=== PATIENT | female | born 1985 | race Hispanic/Latino ===

== ENCOUNTER 2017-09-07 16:32 | Observation (INO) | payer MEDICAID ==
[2017-09-07] MEDS ORDERED: Iohexol 240 (50 ml) PO ONE (17:07)
[2017-09-07 17:54] LABS: BASO # 0.2 K/uL (0.0-0.2); BASO % 0.7 % (0.0-2.0); EOS % 0.2 % (0.0-4.0); HEMOGLOBIN 10.2 g/dL (12.0-16.0); LYMPH # 3.4 K/uL (1.0-4.3); LYMPH % 14.6 % (20.0-40.0); MEAN CELL VOLUME 79.6 fl (81.0-99.0); MEAN CORPUSCULAR HEMOGLOBIN 24.7 pg (27.0-31.0); MEAN CORPUSCULAR HGB CONC 31.1 g/dL (33.0-37.0); MEAN PLATELET VOLUME 7.4 fl (7.2-11.7); MONO # 0.4 K/uL (0.0-0.8); MONO % 1.9 % (0.0-10.0); NEUT # 19.3 K/uL (1.8-7.0); NEUT % 82.6 % (50.0-75.0); RBC 4.13 Mil/uL (3.80-5.20); RED CELL DISTRIBUTION WIDTH 14.3 % (11.5-14.5)
[2017-09-07 17:59] LABS: ALB/GLOB RATIO 1.2 (1.0-2.1); ALBUMIN 3.6 g/dL (3.5-5.0); ALT/SGPT 30 U/L (9-52); AST/SGOT 28 U/L (14-36); BLOOD UREA NITROGEN 14 mg/dl (7-17); CALCIUM 7.9 mg/dL (8.4-10.2); GFR AFRICAN-AMERICAN > 60; GFR NON-AFRICAN AMERICAN > 60; LIPASE 46 U/L (23-300)
[2017-09-07 18:02] LABS: PARTIAL THROMBOPLASTIN TIME 23.5 Seconds (25.6-37.1); PROTHROMBIN TIME 11.3 Seconds (9.8-13.1)
[2017-09-07] MEDS ORDERED: metroNIDAZOLE 500mg/100ml NS 100 ML IV STA (18:34)
[2017-09-07] MEDS ORDERED: Ciprofloxacin 400mg/200ml D5W 400 MG/200 ML BAG IV STA (18:34)
[2017-09-07] MEDS ORDERED: metroNIDAZOLE 500mg/100ml NS 100 ML IVPB ONE (18:54)
[2017-09-07] MEDS ORDERED: Ciprofloxacin 400mg/200ml D5W 400 MG/200 ML BAG IVPB ONE (18:54)
[2017-09-07] MEDS ORDERED: Iohexol 240 (50 ml) ONE (18:55)
[2017-09-07 19:05] LABS: WHITE BLOOD COUNT 23.4 K/uL (4.8-10.8)
--- NOTE | 2017-09-07 19:22 | ED PDOC ---
HPI: Abdomen Time Seen by Provider: 09/07/17 16:54 Chief Complaint (Nursing): Abdominal Pain Chief Complaint (Provider): abdominal pain History Per: Patient History/Exam Limitations: no limitations Onset/Duration Of Symptoms: Days (month), Gradual Current Symptoms Are (Timing): Still Present Location Of Pain/Discomfort: RLQ, LLQ Associated Symptoms: Nausea. denies: Fever, Chills, Vomiting, Urinary Symptoms Additional Complaint(s): Jocelyn Figueroa is a 31 year old female, with a past history of chronic urticaria, who presents to the emergency department complaining of abdominal pain ongoing for a month and increasing in intensity. Patient states pain is localized around umbilicus but radiates to b/l lower quadrants associated with nausea, decrease appetite, and frequent wes-like stools. She reports similar pain when she was diagnosed with colitis several years ago. She denies any vomiting, decreased appetite, fever, chills, vaginal or urinary complaints. No further medical complaints. Of note patient has been on prednisone intermittently for the last month secondary to rash. PMD: [place]. Abnormal Vaginal Bleeding: No Past Medical History Reviewed: Historical Data, Nursing Documentation, Vital Signs Vital Signs: Last Vital Signs Temp 100.2 F H 09/07/17 22:09 Pulse 120 H 09/07/17 20:52 Resp 18 09/07/17 20:52 BP 90/54 L 09/07/17 20:52 Pulse Ox 100 09/07/17 20:52 - Medical History PMH: Asthma Denies: Diabetes, HTN Other PMH: chronic urticaria - Surgical History Surgical History: (x3) - Family History Family History: States: Unknown Family Hx - Social History Current smoker - smoking cessation education provided: No Alcohol: None Drugs: Denies - Immunization History Hx Tetanus Toxoid Vaccination: No Hx Influenza Vaccination: No Hx Pneumococcal Vaccination: No - Home Medications Home Medications: Ambulatory Orders Medication Instructions Recorded Azithromycin [Zithromax Z-Sheldon] 250 mg PO DAILY #1 tab 09/18/14 Prednisone 3 tab-cap PO QAM #12 tab 09/18/14 traMADol [Ultram] 50 mg PO TID PRN #16 tab 09/18/14 traMADol [Ultram] 50 mg PO TID PRN #15 tab 05/08/15 - Allergies Allergies/Adverse Reactions: Allergies Allergy/AdvReac Type Severity Reaction Status Date / Time PORK Allergy ANAPHYLAXIS Verified 09/07/17 16:38 Review of Systems ROS Statement: Except As Marked, All Systems Reviewed And Found Negative Constitutional: Negative for: Fever, Chills Gastrointestinal: Positive for: Nausea, Abdominal Pain. Negative for: Vomiting , Diarrhea Genitourinary Female: Negative for: Vaginal Discharge, Vaginal Bleeding Skin: Positive for: Rash (chronic urticaria) Physical Exam - Reviewed Nursing Documentation Reviewed: Yes Vital Signs Reviewed: Yes - Physical Exam Appears: Positive for: In Acute Distress (painful) Head Exam: Positive for: ATRAUMATIC, NORMAL INSPECTION, NORMOCEPHALIC Skin: Positive for: Normal Color, Warm, Dry, Rash (diffused urticaria) Eye Exam: Positive for: Normal appearance, EOMI, PERRL ENT: Positive for: Other (tacky mucous membranes) Neck: Positive for: Painless ROM, Supple Cardiovascular/Chest: Positive for: Regular Rate, Rhythm. Negative for: Murmur Respiratory: Positive for: Normal Breath Sounds. Negative for: Respiratory Distress Gastrointestinal/Abdominal: Positive for: Soft, Tenderness (periumbilical and b/ l lower quadrants tenderness to palpation ). Negative for: Guarding, Rebound Back: Positive for: Normal Inspection Extremity: Positive for: Normal ROM (upper and lower extremities) Neurologic/Psych: Positive for: Alert, Oriented - Laboratory Results Result Diagrams: 09/07/17 17:45 09/07/17 17:45 - ECG O2 Sat by Pulse Oximetry: 100 (RA) Pulse Ox Interpretation: Normal Medical Decision Making Medical Decision Making: Time: 16:54 Initial Impression: abdominal pain. Differential includes but not limited to colitis, diverticulitis, appendicitis, enteritis. Initial Plan: --Abd Pelvis PO & IV contrast [CT] --CMP --Lact Acid, Plasma --Lipase --Urine dipstick --Urine --CBC w/ differential --PTT --PT --Cipro 400mg in 200 ml IV --Flagyl 100 ml IV --Omnipaque 240 50 ml PO --Morphine 4 mg IVP --Zofran Inj 4 mg IVP --Blood culture --Reevaluation 22:[address] FINDINGS: Lung bases: Subpleural reticular opacities within the dependent aspect of the lower lobes may represent subsegmental atelectasis or scarring. Mediastinum: A small amount of contrast is present within the distal esophagus. ABDOMEN: Liver: Mild focal fatty infiltration in the region of the falciform ligament. The liver is otherwise unremarkable. Gallbladder and bile ducts: Normal. No calcified stones. No ductal dilation. Pancreas: The pancreas is normal. No ductal dilation. Spleen: Normal. No splenomegaly. Adrenals: The adrenal glands are normal. Kidneys and ureters: The kidneys are normal. The ureters are normal. No hydronephrosis. Stomach and bowel: Contrast is present within the stomach, small bowel, and proximal large bowel. No bowel dilation. No bowel wall thickening. PELVIS: Appendix: A normal appendix is identified. Bladder: The bladder is normal. Reproductive: The uterus is normal. Normal appearance of the adnexa. ABDOMEN and PELVIS: Intraperitoneal space: Normal. No free air. No significant fluid collection. Bones/joints: Normal for age. No acute osseous abnormality. Soft tissues: Normal. Vasculature: Normal. No abdominal aortic aneurysm. Lymph nodes: Normal. No enlarged lymph nodes. IMPRESSION: No acute abdominopelvic abnormality. 10:47 On reevaluation patient still has pain. Pt was hospitalized for sepsis, and intractable & undifferentiated abdominal pain ----- Scribe Attestation: Documented by Aleksandar Gracia, acting as a scribe for Tameka Plaza MD. Provider Scribe Attestation: All medical record entries made by the Scribe were at my direction and personally dictated by me. I have reviewed the chart and agree that the record accurately reflects my personal performance of the history, physical exam, medical decision making, and the department course for this patient. I have also personally directed, reviewed, and agree with the discharge instructions and disposition. Disposition - Disposition Disposition Time: 10:47 Condition: FAIR Forms: [employer] ([place])
[2017-09-07] MEDS ORDERED: DiphenhydrAMINE 50 mg/ml Inj IVP STA (20:49)
[2017-09-07] MEDS ORDERED: Sodium Chloride 0.9% 100 ML ONE (21:41)
[2017-09-07] MEDS ORDERED: Iohexol 300 100 ML IJ ONE (21:41)
[2017-09-07] MEDS ORDERED: Morphine 4 MG/ML VIAL ONE (23:14)
[2017-09-07] MEDS: Sodium Chloride 0.9% 1,000 ML IV SCH (23:22)
[2017-09-08] MEDS: metroNIDAZOLE 500mg/100ml NS 100 ML IVPB SCH ×3 (01:24→16:34)
[2017-09-08 07:12] LABS: BASO % 0.2 % (0.0-2.0); HEMOGLOBIN 9.4 g/dL (12.0-16.0); LYMPH % 9.2 % (20.0-40.0); MEAN CELL VOLUME 79.7 fl (81.0-99.0); MEAN CORPUSCULAR HEMOGLOBIN 25.4 pg (27.0-31.0); MEAN CORPUSCULAR HGB CONC 31.8 g/dL (33.0-37.0); MEAN PLATELET VOLUME 7.7 fl (7.2-11.7); MONO % 0.4 % (0.0-10.0); NEUT % 90.2 % (50.0-75.0); PLATELET COUNT 352 K/uL (130-400); RBC 3.71 Mil/uL (3.80-5.20); WHITE BLOOD COUNT 11.1 K/uL (4.8-10.8)
[2017-09-08 07:34] LABS: ALB/GLOB RATIO 1.3 (1.0-2.1); ALBUMIN 3.8 g/dL (3.5-5.0); ALT/SGPT 28 U/L (9-52); AST/SGOT 21 U/L (14-36); BLOOD UREA NITROGEN 9 mg/dl (7-17); CALCIUM 8.3 mg/dL (8.4-10.2); GFR AFRICAN-AMERICAN > 60; GFR NON-AFRICAN AMERICAN > 60
[2017-09-08 08:44] VITALS: RESP 18; O2SAT 100
--- NOTE | 2017-09-08 08:48 | CP.PCM.HP ---
History of Present Illness - History of Present Illness History of Present Illness: pt admitted for persistent diarrhea, abd cramping, weakness. bw and imaging noted. wbc 11 down from 23. no f/c, n/v. states has not been eating well bc is afraid of n/v/d. Present on Admission - Present on Admission Any Indicators Present on Admission: No Review of Systems - Gastrointestinal Gastrointestinal: As Per HPI, Abdominal Pain, Diarrhea Past Patient History - Past Medical History & Family History Past Medical History?: Yes - Past Social History Smoking Status: Never Smoked - CARDIAC Hx Cardiac Disorders: No Hx Hypertension: No - PULMONARY Hx Respiratory Disorders: Yes Hx Asthma: Yes - NEUROLOGICAL Hx Neurological Disorder: Yes Hx Migraine: Yes - HEENT Hx HEENT Problems: No - RENAL Hx Chronic Kidney Disease: No - ENDOCRINE/METABOLIC Hx Endocrine Disorders: No - HEMATOLOGICAL/ONCOLOGICAL Hx Blood Disorders: No - INTEGUMENTARY Hx Dermatological Problems: Yes Other/Comment: chronic urticaria - MUSCULOSKELETAL/RHEUMATOLOGICAL Hx Falls: No Other/Comment: [place] ankle sprains - GASTROINTESTINAL Hx Gastrointestinal Disorders: Yes Hx Colitis: Yes - GENITOURINARY/GYNECOLOGICAL Hx Genitourinary Disorders: No - PSYCHIATRIC Hx Psychophysiologic Disorder: No Hx Substance Use: No - SURGICAL HISTORY Hx Surgeries: Yes Hx Section: Yes (X3) - ANESTHESIA Hx Anesthesia: Yes Hx Anesthesia Reactions: No Hx Malignant Hyperthermia: No Has any member of the family had a problem w/ anesthesia?: No Meds Allergies/Adverse Reactions: Allergies Allergy/AdvReac Type Severity Reaction Status Date / Time PORK Allergy ANAPHYLAXIS Verified 09/07/17 16:38 Physical Exam - Constitutional Appears: Well, Non-toxic, No Acute Distress - Head Exam Head Exam: ATRAUMATIC, NORMAL INSPECTION, NORMOCEPHALIC - Eye Exam Eye Exam: EOMI, Normal appearance, PERRL Pupil Exam: NORMAL ACCOMODATION, PERRL - ENT Exam ENT Exam: Mucous Membranes Moist, Normal Exam - Neck Exam Neck exam: Positive for: Normal Inspection - Respiratory Exam Respiratory Exam: Clear to Auscultation Bilateral, NORMAL BREATHING PATTERN - Cardiovascular Exam Cardiovascular Exam: REGULAR RHYTHM, RRR, +S1, +S2 - GI/Abdominal Exam GI & Abdominal Exam: Normal Bowel Sounds, Soft. absent: Tenderness - Extremities Exam Extremities exam: Positive for: full ROM, normal capillary refill, normal inspection, pedal pulses present - Back Exam Back exam: FULL ROM, NORMAL INSPECTION - Neurological Exam Neurological exam: Alert, CN II-XII Intact, Normal Gait, Oriented x3, Reflexes Normal - Psychiatric Exam Psychiatric exam: Normal Affect, Normal Mood - Skin Skin Exam: Dry, Intact, Normal Color, Warm Results - Vital Signs Recent Vital Signs: Last Vital Signs Temp 97.8 F 09/08/17 08:43 Pulse 88 09/08/17 08:43 Resp 18 09/08/17 08:43 BP 105/57 L 09/08/17 08:43 Pulse Ox 100 09/08/17 08:43 - Labs Result Diagrams: 09/08/17 05:30 09/08/17 05:30 Labs: Laboratory Results - last 24 hr 09/07/17 09/07/17 09/07/17 17:25 17:45 17:45 WBC 23.4 H RBC 4.13 Hgb 10.2 L Hct 32.9 L MCV 79.6 L MCH 24.7 L MCHC 31.1 L RDW 14.3 Plt Count 385 MPV 7.4 Neut % (Auto) 82.6 H Lymph % (Auto) 14.6 L [place] % (Auto) 1.9 Eos % (Auto) 0.2 Baso % (Auto) 0.7 Neut # (Auto) 19.3 H Lymph # (Auto) 3.4 [place] # (Auto) 0.4 Eos # (Auto) 0.0 Baso # (Auto) 0.2 PT INR APTT Sodium 135 Potassium 3.5 L Chloride 100 Carbon Dioxide 24 Anion Gap 15 BUN 14 Creatinine 0.6 L Est GFR ( Amer) > 60 Est GFR (Non-Af Amer) > 60 Random Glucose 93 Lactic Acid 1.4 Calcium 7.9 L Total Bilirubin 0.5 AST 28 ALT 30 Alkaline Phosphatase 52 Total Protein 6.5 Albumin 3.6 Globulin 2.9 Albumin/Globulin Ratio 1.2 Lipase 46 09/07/17 09/08/17 09/08/17 17:45 05:30 05:30 WBC 11.1 H D RBC 3.71 L Hgb 9.4 L Hct 29.6 L MCV 79.7 L MCH 25.4 L MCHC 31.8 L RDW 14.0 Plt Count 352 MPV 7.7 Neut % (Auto) 90.2 H Lymph % (Auto) 9.2 L [place] % (Auto) 0.4 Eos % (Auto) 0.0 Baso % (Auto) 0.2 Neut # (Auto) 10.0 H Lymph # (Auto) 1.0 [place] # (Auto) 0.0 Eos # (Auto) 0.0 Baso # (Auto) 0.0 PT 11.3 INR 1.0 APTT 23.5 L Sodium 140 Potassium 4.2 Chloride 103 Carbon Dioxide 25 Anion Gap 16 BUN 9 Creatinine 0.5 L Est GFR ( Amer) > 60 Est GFR (Non-Af Amer) > 60 Random Glucose 141 H Lactic Acid Calcium 8.3 L Total Bilirubin 0.5 AST 21 ALT 28 Alkaline Phosphatase 53 Total Protein 6.8 Albumin 3.8 Globulin 2.9 Albumin/Globulin Ratio 1.3 Lipase Assessment & Plan (1) Diarrhea Assessment and Plan: stool c/s cipro/flagyl as pt also had elev wbc-now 11 down from 23 gi liquid diet and adv as lourdes Status: Acute (2) DVT prophylaxis Assessment and Plan: scd and ae hose ambulation Status: Acute Decision To Admit - Pt Status Changed To: Hospital Disposition Of: Observation - . Bed Request Type: Med/Surg Admitting Physician: Kimberly Ma
[2017-09-08] MEDS ORDERED: Pneumococcal 23-Valent Vaccine IM ONE (09:00)
[2017-09-08] MEDS ORDERED: Ciprofloxacin 400mg/200ml D5W 400 MG/200 ML BAG IVPB SCH (09:00)
[2017-09-08 09:30] LABS: LYMPHOCYTE 10 % (20-50); MONOCYTE 1 % (0-10); NEUTROPHIL 89 % (42-75); PLATELET ESTIMATE NORMAL (NORMAL); TOTAL CELLS COUNTED 100
[2017-09-08 09:31] LABS: ANISOCYTOSIS SLIGHT; MICROCYTOSIS SLIGHT
[2017-09-08 09:32] LABS: HYPOCHROMIC MODERATE
[2017-09-08 09:33] LABS: OVALOCYTES SLIGHT
[2017-09-08] MEDS: Sodium Chloride 0.9% 1,000 ML IV SCH (12:23)
--- NOTE | 2017-09-08 14:42 | CT ---
Date of service: 09/07/2017 PROCEDURE: CT Abdomen and Pelvis with contrast HISTORY: abd pain possible colitis COMPARISON: Comparison made with prior CT scan abdomen pelvis 03/08/2009 TECHNIQUE: Contrast dose: 95 cc Omnipaque 300 the Radiation dose: Total exam DLP = 1047.62 mGy-cm. This CT exam was performed using one or more of the following dose reduction techniques: Automated exposure control, adjustment of the mA and/or kV according to patient size, and/or use of iterative reconstruction technique. FINDINGS: LOWER THORAX: Heart size within range of normal. No significant pericardial effusion. There is a tiny hiatal hernia with small amount of intraluminal contrast material suggesting reflux. Mild wall thickening of the distal esophagus likely T2 protrusion gastric mucosa however of mild esophagitis not excluded. LIVER: Liver is mildly enlarged measuring nearly 20 cm in CC dimension. No obvious hepatic mass or collection. Portal and splenic veins are opacified. No gross intrahepatic biliary ductal dilatation. GALLBLADDER AND BILE DUCTS: Unremarkable. PANCREAS: Unremarkable. No gross lesion or ductal dilatation. SPLEEN: Unremarkable. ADRENALS: Unremarkable. No mass. KIDNEYS AND URETERS: Unremarkable. No hydronephrosis. No solid mass. VASCULATURE: Unremarkable. No aortic aneurysm. BOWEL: Unremarkable. No obstruction. No gross mural thickening. APPENDIX: Normal appendix. PERITONEUM: Unremarkable. No free fluid. No free air. LYMPH NODES: Few tiny nonspecific retroperitoneal lymph nodes. BLADDER: Prominent follicle or small left low adnexal cyst cyst measuring approximately 15.7 mm. REPRODUCTIVE: Unremarkable. BONES: Minor multilevel degenerative spondylosis of the lower thoracic and lumbar spine. No acute compression fractures. OTHER FINDINGS: None. IMPRESSION: Tiny hiatal hernia move with small amount of oral contrast material in the distal esophagus. Slight wall thickening of the distal esophagus left possibly due to protrusion of gastric mucosa however esophagitis not excluded.
[2017-09-08 16:31] VITALS: BP 114/74; PULSE 98; TEMP 97.7
--- NOTE | 2017-09-10 09:16 | CON ---
DATE: 09/08/2017REASON FOR CONSULTATION: Problem obtaining . HISTORY OF PRESENT ILLNESS: This is a pleasant 31-year-old female who apparently had for which she is on chronic steroids, comes in for questionable fevers, diarrhea, cramping, and weakness. The patient actually feels better now. She is to eat but has no pain. This pain that she has had has been on there for the past three weeks, epigastric with radiation to the right upper quadrant occasionally with no heartburn or reflux. No weight loss, actually weight gain. No fevers or chills at this point. Currently lying in bed comfortable, in no apparent distress. PAST MEDICAL HISTORY: As above. PAST SURGICAL HISTORY: As above. MEDICATIONS: Have been reviewed. REVIEW OF SYSTEMS: All other systems have been reviewed and negative apart from the HPI. PHYSICAL EXAMINATION: VITAL SIGNS: Here in the hospital, grossly unremarkable. GENERAL: A young female lying in bed comfortable, in no apparent distress. HEENT: Head is normocephalic and atraumatic. Eyes: Pupils are equal and reactive to light and accommodation. No conjunctival pallor or icterus. NECK: Supple. Normal range of motion. No lymphadenopathy appreciated. LUNGS: Coarse breath sounds bilaterally. HEART: S1 and S2, regular rate and rhythm. No murmurs appreciated. ABDOMEN: Soft and nontender. Bowel sounds are present with some epigastric discomfort. No rebound. No guarding. RECTAL: Deferred. EXTREMITIES: Pulses present bilaterally. SKIN: Warm, dry, and intact. NEUROLOGIC: A and O x3. LABORATORY DATA: All labs and radiology have been reviewed. WBC 20.4 down to 11.1, hemoglobin 9.4 and stable. INR is 1. LFTs within normal limits. CAT shows questionable thickening of the stomach. ASSESSMENT AND PLAN: This is a 31-year-old female with abdominal discomfort. Unclear etiology suspect probable irritable bowel syndrome given her age and comorbidities. We will benefit from endoscopy as an outpatient. Consider pepcid p.r.n. Advance diet as tolerated and ambulate as much as possible. Thank you for the consult. Prem Willis MD/ PhD MTDGracia
--- NOTE | 2017-09-10 09:40 | CP.PCM.DIS ---
Provider - Provider Date of Admission: 09/07/17 22:50 Attending physician: Kimberly Ma MD Time Spent in preparation of Discharge (in minutes): 15 Diagnosis - Discharge Diagnosis (1) Diarrhea Status: Acute (2) DVT prophylaxis Status: Acute Hospital Course - Lab Results Lab Results: Micro Results 09/07/17 17:25 Blood-Venous Blood Culture - Preliminary NO GROWTH AFTER 48 HOURS 09/07/17 17:25 Blood-Venous Blood Culture - Preliminary NO GROWTH AFTER 48 HOURS Most Recent Lab Values WBC 11.1 K/uL (4.8-10.8) H D 09/08/17 05:30 RBC 3.71 Mil/uL (3.80-5.20) L 09/08/17 05:30 Hgb 9.4 g/dL (12.0-16.0) L 09/08/17 05:30 Hct 29.6 % (34.0-47.0) L 09/08/17 05:30 MCV 79.7 fl (81.0-99.0) L 09/08/17 05:30 MCH 25.4 pg (27.0-31.0) L 09/08/17 05:30 MCHC 31.8 g/dL (33.0-37.0) L 09/08/17 05:30 RDW 14.0 % (11.5-14.5) 09/08/17 05:30 Plt Count 352 K/uL (130-400) 09/08/17 05:30 MPV 7.7 fl (7.2-11.7) 09/08/17 05:30 Neut % (Auto) 90.2 % (50.0-75.0) H 09/08/17 05:30 Lymph % (Auto) 9.2 % (20.0-40.0) L 09/08/17 05:30 [place] % (Auto) 0.4 % (0.0-10.0) 09/08/17 05:30 Eos % (Auto) 0.0 % (0.0-4.0) 09/08/17 05:30 Baso % (Auto) 0.2 % (0.0-2.0) 09/08/17 05:30 Neut # (Auto) 10.0 K/uL (1.8-7.0) H 09/08/17 05:30 Lymph # (Auto) 1.0 K/uL (1.0-4.3) 09/08/17 05:30 [place] # (Auto) 0.0 K/uL (0.0-0.8) 09/08/17 05:30 Eos # (Auto) 0.0 K/uL (0.0-0.7) 09/08/17 05:30 Baso # (Auto) 0.0 K/uL (0.0-0.2) 09/08/17 05:30 Neutrophils % (Manual) 89 % (42-75) H 09/08/17 05:30 Lymphocytes % (Manual) 10 % (20-50) L 09/08/17 05:30 Monocytes % (Manual) 1 % (0-10) 09/08/17 05:30 Platelet Estimate Normal (NORMAL) 09/08/17 05:30 Hypochromasia (manual) Moderate 09/08/17 05:30 Anisocytosis (manual) Slight 09/08/17 05:30 Microcytosis (manual) Slight 09/08/17 05:30 Ovalocytes Slight 09/08/17 05:30 PT 11.3 Seconds (9.8-13.1) 09/07/17 17:45 INR 1.0 (0.9-1.2) 09/07/17 17:45 APTT 23.5 Seconds (25.6-37.1) L 09/07/17 17:45 Sodium 140 mmol/l (132-148) 09/08/17 05:30 Potassium 4.2 MMOL/L (3.6-5.0) 09/08/17 05:30 Chloride 103 mmol/L (98-107) 09/08/17 05:30 Carbon Dioxide 25 mmol/L (22-30) 09/08/17 05:30 Anion Gap 16 (10-20) 09/08/17 05:30 BUN 9 mg/dl (7-17) 09/08/17 05:30 Creatinine 0.5 mg/dl (0.7-1.2) L 09/08/17 05:30 Est GFR ( Amer) > 60 09/08/17 05:30 Est GFR (Non-Af Amer) > 60 09/08/17 05:30 Random Glucose 141 mg/dL (65-105) H 09/08/17 05:30 Lactic Acid 1.4 MMOL/L (0.7-2.1) 09/07/17 17:25 Calcium 8.3 mg/dL (8.4-10.2) L 09/08/17 05:30 Total Bilirubin 0.5 mg/dl (0.2-1.3) 09/08/17 05:30 AST 21 U/L (14-36) 09/08/17 05:30 ALT 28 U/L (9-52) 09/08/17 05:30 Alkaline Phosphatase 53 U/L (38-126) 09/08/17 05:30 Total Protein 6.8 G/DL (6.3-8.2) 09/08/17 05:30 Albumin 3.8 g/dL (3.5-5.0) 09/08/17 05:30 Globulin 2.9 gm/dL (2.2-3.9) 09/08/17 05:30 Albumin/Globulin Ratio 1.3 (1.0-2.1) 09/08/17 05:30 Lipase 46 U/L (23-300) 09/07/17 17:45 C. difficile Ag & Toxin Negative (NEGATIVE) 09/08/17 15:45 - Hospital Course Hospital Course: gi po as lourdes ivf stool c/s Discharge Exam - Head Exam Head Exam: ATRAUMATIC, NORMAL INSPECTION, NORMOCEPHALIC Discharge Plan - Discharge Medications Prescriptions: Ciprofloxacin HCl [Cipro] 500 mg PO BID #14 tab Dicyclomine [Bentyl] 10 mg PO QID PRN #20 cap PRN Reason: abd cramp Famotidine [Pepcid] 20 mg PO BID #60 tab Metronidazole [Flagyl] 500 mg PO Q8 #21 tab - Follow Up Plan Condition: FAIR Disposition: HOME/ ROUTINE Instructions: Acute Abdomen (Belly Pain), Adult (DC) Additional Instructions: Please call [facility] (Dr. Bruce) for follow-up appointment cleared by gi final dx-abd pain and diarrhea f/u rmg in am, rted prn, meds per med rec, f/u stool studies
== END 2017-09-08 19:15 | disposition home or self-care (01) ==
LOC: H.ER 16:32 → H.ERHOLD 22:50 → H.MEDSURG1 09-08 00:25
PROVIDERS: ADMIT Family Medicine; ATTEND Family Medicine
DX: K58.0 Irritable bowel syndrome with diarrhea (principal); R19.7 Diarrhea, unspecified; Z79.52 Long term (current) use of systemic steroids; G43.909 Migraine, unspecified, not intractable, without status migrainosus; R21 Rash and other nonspecific skin eruption; J45.909 Unspecified asthma, uncomplicated; Z23 Encounter for immunization
CPT/HCPCS: 36415; 74177; 80053; 81025; 83605; 83690; 85025; 85610; 85730; 87040; 87045; 87177; 87209; 87230; 90471; 90732; 96360; 96374; 99285; G0378; J0500; J0744; J1200; J2270; J2405; J2930; J7030; Q9966; Q9967